=== PATIENT | female | born 1990 | race Caucasian/White ===

== ENCOUNTER 2022-08-18 07:17 | Outpatient (CLI) | payer BC, SELFPAY ==
--- NOTE | ~2022-08-18 | XR_ITS ---
EXAMINATION: XR wrist LT min 3V DATE: 08/18/2022 07:38 INDICATION: Left wrist pain TECHNIQUE: Posteroanterior, ulnar deviation, oblique, and lateral views of the left wrist were obtain ed. COMPARISON: None available FINDINGS: There is no fracture, dislocation, or subluxation. The bones, soft tissues, and joint space s are normal. IMPRESSION: 1. No acute osseous abnormality. Reviewed, dictated and finalized at location A.
== END 2022-08-18 07:18 ==
PROVIDERS: PCP Nurse Practitioner; Visit Provider Nurse Practitioner Family
DX: M25.532 Pain in left wrist (principal)
CPT/HCPCS: 73110

== ENCOUNTER 2023-04-07 11:55 | Outpatient (CLI) | payer BC, SELFPAY ==
[2023-04-07 12:50] LABS: Anion Gap 5 mmol/L (8-16); Blood Urea Nitrogen 11 mg/dL (7-17); Carbon Dioxide 30 mmol/L (22-30); Chloride 102 mmol/L (98-107); Estimated Glomerular Filt Rate > 60; Glucose 94 mg/dL (65-110); Potassium 3.5 mmol/L (3.4-5.0); Sodium 137 mmol/L (137-145)
[2023-04-12 19:20] LABS: Insulin Level Total 13.8 uIU/mL (<=19.6)
== END 2023-04-07 11:56 | disposition home or self-care (01) ==
LOC: ANHLAB 11:58
PROVIDERS: PCP Nurse Practitioner; Visit Provider Family Medicine
DX: E66.01 Morbid (severe) obesity due to excess calories (principal); I10 Essential (primary) hypertension; Z68.43 Body mass index [BMI] 50.0-59.9, adult
CPT/HCPCS: 36415; 80048; 82533; 83525

== ENCOUNTER 2023-06-17 17:02 | Inpatient (IN) | payer BC, SELFPAY ==
[2023-06-17] VITALS (69 sets, daily range): BP systolic 174–262; BP diastolic 94–152; PULSE 81–115; RESP 1–32; TEMP 36.8; O2SAT 93–100
--- NOTE | ~2023-06-17 | CT_ITS ---
EXAMINATION: CTA chest PE protocol DATE: 06/17/2023 20:20 INDICATION: HTN, CP/tightness, +dimer, elev BNP, poss PNA CXR TECHNIQUE: Computed tomography angiography (CTA) of the chest was performed with 100 mL Omnipaque-350 intravenous contrast timed to evaluate the pulmonary arteries. Coronal maximum intensity projection 3D-reconstructions were created by the technologist. The dose-length product (DLP) was 1016.35 mGy-cm . Automated exposure control and iterative reconstruction technique were employed. COMPARISON: None. FINDINGS: Lung parenchyma and airways: Subsegmental lingular opacity with volume loss. Pleura: Unremarkable. Thoracic inlet, axillae and chest wall: Unremarkable. Thoracic aorta: Normal. Mediastinum: Normal. Heart and pericardium: Mild cardiomegaly. Left ventricular wall thickening. Coronary artery calcifications: None. Upper abdomen: Diffuse fatty infiltration of the liver. Bones: No acute osseous finding. Pulmonary arteries: Study quality: Adequate. No pulmonary emboli detected. IMPRESSION: No CT evidence of acute pulmonary embolus. Subsegmental lingular opacity has the appearance of atelectasis. Cardiomegaly with left ventricular hypertrophy. Hepatic steatosis. Reviewed, dictated and finalized at location K.
--- NOTE | ~2023-06-17 | US_ITS ---
EXAMINATION: US renal BI DATE: 06/18/2023 08:59 INDICATION: Uncontrolled HTN TECHNIQUE: Multiple grayscale and Doppler ultrasound images of the kidneys were obtained. COMPARISON: CT abdomen pelvis 08/24/2015 FINDINGS: The right kidney measures 12.2 x 4.3 x 4.3 cm. The left kidney measures 11.1 x 5.2 x 5.5 cm. The kidn eys demonstrate normal parenchymal echogenicity. There is no hydronephrosis. The bladder is normal. IMPRESSION: Unremarkable renal sonogram findings. Reviewed, dictated and finalized at location K.
--- NOTE | ~2023-06-17 | XR_ITS ---
EXAMINATION: XR chest 1V portable Exam Date/Time: 06/17/2023 18:00 CDT HISTORY: chest cold, congestion, high BP Comparison: None. RESULT: Lines, tubes, and devices: None. Lungs and pleura: Segmental airspace disease in the left lower lung. Cardiomediastinal silhouette: Stable. Other: No acute osseous or upper abdominal finding. IMPRESSION: Lower lobe opacities may represent atelectasis or the consolidation of pneumonia. Reviewed, dictated and finalized at location K. IMPRESSION: Lower lobe opacities may represent atelectasis or the consolidation of pneumoni a.
--- NOTE | 2023-06-17 17:22 | ECG_ITS ---
Measurements Intervals [place] Rate: 90 P: 31 TX: 165 QRS: -7 QRSD: 95 T: 105 QT: 376 QTc: 462 Interpretive Statements SINUS RHYTHM DELAYED PRECORDIAL R/S TRANSITION LEFT VENTRICULAR HYPERTROPHY AND ST-T CHANGE BORDERLINE ECG NO PREVIOUS ECG AVAILABLE FOR COMPARISON Electronically Signed On 06-17-2023 17:38:21 CDT by Que Vang D.O.
--- NOTE | 2023-06-17 17:37 | ED.GENADULT ---
HPI - General Adult General Chief complaint: Recheck/Abnormal Lab/Rx Stated complaint: high bp Time Seen by Provider: 06/17/23 17:27 Source: patient Mode of arrival: ambulatory Limitations: no limitations History of Present Illness HPI narrative: Patient is a 32 y/o female who presents to the ED with c/o elevated BP. Patient reports she has been sick for the last 2 weeks with a cough, congestion, rhinorrhea. The cough was dry at first, but she began producing thick green drainage 2-3 days ago. 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 Last night into today, patient has had brief episodes of pain across her anterior chest. Denies any aggravating or alleviating factors to this CP. States it occurs every few minutes. Denies aggravation with exertion. Denies feeling short of breath. Patient does also report having myalgias in her upper back. Patient went to urgent care today and was referred here for further evaluation due to elevated BP. Patient does have history of HTN. She states she had previously been on spironolactone and hydrochlorothiazide. She stopped taking these a few months ago as she never followed up with her primary. She does not check her blood pressure otherwise at home. Denies recent fevers, sore throat, lower extremity swelling, abdominal pain, nausea, vomiting. Patient is a daily smoker. Related Data Allergies Allergy/AdvReac Type Severity Reaction Status Date / Time bupropion [From Wellbutrin] AdvReac Hypertensio Verified 06/17/23 17:57 n Review of Systems Review of Systems: CONSTITUTIONAL: Denies fever, chills, or sweats. ENT: See HPI. CARDIOVASCULAR: See HPI. RESPIRATORY: See HPI. GASTROINTESTINAL: Denies abdominal pain, nausea, vomiting. MUSCULOSKELETAL: See HPI. All systems reviewed & are unremarkable except as noted in HPI and below PMFSH Past Medical History Medical History (Updated 06/17/23 @ 23:29 by Kelsi Roblero PA-C) HTN (hypertension) Family History Family History (Updated 01/28/15 @ 10:28 by DOCTOR UNKNOWN) Grandparent Family history of chronic obstructive pulmonary disease Family history of malignant neoplasm of ovary Diabetes mellitus Social History Social History Smoking status: Current every day smoker Alcohol intake: current Exam Narrative: GENERAL: Well appearing, morbidly obese with BMI of 55.0, non-toxic, in no acute distress. HEAD: Normocephalic, atraumatic. NECK: Supple. No adenopathy, no masses. RESPIRATORY: Airway patent, respirations nonlabored. Scattered expiratory wheezing bilaterally. No significant rhonchi. Frequent coughing on exam. CARDIOVASCULAR: Regular rate and rhythm without murmurs, rubs, or gallops. Radial pulses 2+ and equal bilaterally. ABDOMINAL: Soft, nontender, nondistended, no hepatosplenomegaly. Normoactive BS. MUSCULOSKELETAL: Moves all extremities. Strength/ROM intact without gross deformities. No edema. SKIN: Warm, dry, normal color. No rashes. NEURO: A&O X3. Speech clear. Cranial nerves II-XII grossly intact. Steady gait. No ataxic movements. PSYCHIATRIC: Anxious, tearful. Normal interaction. Course Vital Signs Vital signs: Vital Signs Temperature 98.3 F 06/17/23 17:11 Pulse Rate 100 06/17/23 17:11 Respiratory Rate 16 06/17/23 17:11 Blood Pressure 221/136 H 06/17/23 17:11 Pulse Oximetry 100 06/17/23 17:11 Oxygen Delivery Room Air 06/17/23 17:11 Temperature 98.3 F 06/17/23 17:11 Pulse Rate 104 H 06/17/23 21:00 Respiratory Rate 17 06/17/23 21:00 Blood Pressure 219/115 H 06/17/23 21:14 Pulse Oximetry 99 06/17/23 20:45 Oxygen Delivery Room Air 06/17/23 17:11 Medical Decision Making MDM Narrative Medical decision making narrative: BP upon arrival 221/136. Patient anxious. Stopped taking her meds a few months ago. Per med rec, a 30day supply of hydrochlorothiazide 25mg was filled on 03/31. Will attempt hydralazine for BP contro
[2023-06-17 17:58] LABS: Basophils Absolute Auto 0.1 K/mm3 (0.0-0.1); Basophils Percent Auto 0.9 % (0.2-1.2); Eosinophils Absolute Auto 0.3 K/mm3 (0-0.3); Eosinophils Percent Auto 2.4 % (0-4.4); Hematocrit 38.6 % (37.0-47.0); Hemoglobin 12.5 g/dL (12.0-15.0); Immature Granulocyte Absolute 0.05 K/mm3 (0.00-0.031); Immature Granulocyte Percent A 0.5 % (0-0.5); Lymphocytes Absolute Auto 1.63 K/mm3 (0.9-3.2); Lymphocytes Percent Auto 15.7 % (18.3-44.2); Mean Corpuscular HGB Conc 32.4 g/dl (32-36); Mean Corpuscular Hemoglobin 27.2 pg (26-34); Mean Corpuscular Volume 83.9 fl (80-100); Mean Platelet Volume 9.9 fl (7.4-10.4); Monocytes Absolute Auto 0.6 K/mm3 (0.1-0.6); Neutrophils Absolute Auto 7.8 K/mm3 (1.3-6.7); Neutrophils Percent Auto 74.5 % (45.5-73.1); Platelet Count Result 339 k/mm3 (150-375); Red Cell Distribution Width 15.1 % (11.5-14.5); White Blood Count 10.4 K/mm3 (4.5-10.0)
[2023-06-17] MEDS: LEVALBUTEROL NEB 1.25 MG/3 ML INHALATION (18:01)
[2023-06-17] MEDS: IPRATROPIUM BR 0.02% INH SOLN 0.5 MG/2.5 ML VIAL INHALATION (18:02)
[2023-06-17 18:07] LABS: Prothrombin Time 13.5 Seconds (11.1-14.7)
[2023-06-17 18:08] LABS: Partial Thromboplastin Time 23.7 SECONDS (22.3-36.8)
[2023-06-17 18:15] LABS: Alanine Aminotransferase 52 U/L (6-35); Albumin Level 4.1 g/dL (3.5-5.1); Alkaline Phosphatase 89 U/L (38-126); Anion Gap 7 mmol/L (8-16); Aspartate Amino Transferase 51 U/L (14-36); Bilirubin,Total 0.7 mg/dL (0.2-1.3); Blood Urea Nitrogen 11 mg/dL (7-17); Calcium 9.1 mg/dL (8.4-10.2); Carbon Dioxide 23 mmol/L (22-30); Chloride 102 mmol/L (98-107); Estimated CRCL calculation 151 ml/min; Estimated Glomerular Filt Rate > 60; Glucose 99 mg/dL (65-110); Lipase 95 U/L (23-300); Potassium 4.1 mmol/L (3.4-5.0); Sodium 132 mmol/L (137-145)
[2023-06-17 18:20] LABS: NT Pro B Type Natriuretic Pept 896 pg/mL (19.9-100); Troponin I 0.016 ng/mL (0.000-0.034)
[2023-06-17 18:22] LABS: Hemoglobin A1C 5.5 % (<5.7)
[2023-06-17] MEDS: hydrALAZINE HCL 20 MG/ML VIAL 10 MG IV PUSH ×2 (18:29→19:16)
[2023-06-17] MEDS: ASPIRIN 81 MG CHEWABLE TABLET 324 MG PO (18:29)
--- NOTE | 2023-06-17 19:39 | PC.NURSE ---
Report received from KYLIE Quintana. Assumed care of patient at this time.
[2023-06-17 19:40] LABS: D Dimer 3.19 ug/mL (<0.48)
[2023-06-17 19:47] LABS: Influenza A QL RT-PCR Negative (Negative); Influenza B QL RT-PCR Negative (Negative); SARS-CoV-2 RNA PCR Negative (Negative)
[2023-06-17 19:47] LABS: Appearance Urine Clear (Clear); Bacteria Urine None Seen /hpf; Bilirubin Urine Negative (Negative); Blood Urine Negative (Negative); Calcium Oxalate Crystals Urine Present /hpf; Color Urine Yellow (Yellow); Glucose Urine UA Negative (Negative); Ketones Urine Negative (Negative); Leukocyte Esterase Ur Negative LEU/UL (Negative); Need Manual Microscopic Reviewed; Nitrate Urine Negative (Negative); Non Pathogenic Casts 0-2; Protein Urine Trace mg/dL (Negative); Specific Grav Ur 1.018 (1.001-1.035); Squamous Epithelial Cell Urine None seen /hpf (Few); Urobilinogen Urine 0.2 mg/dL (<2.0); WBC Urine 0-5 /hpf; pH Urine 6.5 (5.0-9.0)
[2023-06-17 19:48] LABS: Add Urine Microscopic? YES
[2023-06-17 21:01] LABS: Troponin I 0.018 ng/mL (0.000-0.034)
[2023-06-17] MEDS: LABETALOL HCL INJ 100 MG/20 ML VIAL 20 MG IV PUSH (21:13)
--- NOTE | 2023-06-17 23:37 | PM.IMHP ---
H&P: HPI History of Present Illness Date/Time: 06/17/23 23:37 Chief Complaint: chest pain Narrative: This is a 32-year-old female with past medical history significant for tobacco dependence, alcohol dependence, uncontrolled hypertension, morbid obesity. Patient presents to the emergency room due to chest pain, has had a upper respiratory infection for the last 2 weeks with runny nose cough has been on amoxicillin. Patient also with uncontrolled hypertension systolic in the 200s has been prescribed antihypertensives but patient does not take them. In emergency room found to have a systolic blood pressure of 214/112, patient denies any leg pain, leg swelling or ankle swelling or pedal swelling, no nausea, no vomiting, no abdominal pain, has felt the dizzy. EXAMINATION:? XR chest 1V portable Exam Date/Time:? 06/17/2023 18:00 CDT HISTORY: chest cold, congestion, high BP ? Comparison:? None. RESULT: Lines, tubes, and devices:? None. Lungs and pleura:? Segmental airspace disease in the left lower lung. Cardiomediastinal silhouette:? Stable. Other:? No acute osseous or upper abdominal finding. ? IMPRESSION: Lower lobe opacities may represent atelectasis or the consolidation of pneumonia. EXAMINATION: CTA chest PE protocol DATE: 06/17/2023 20:20 INDICATION: HTN, CP/tightness, +dimer, elev BNP, poss PNA CXR TECHNIQUE: Computed tomography angiography (CTA) of the chest was performed with 100 mL Omnipaque-350 intravenous contrast timed to evaluate the pulmonary arteries. Coronal maximum intensity projection 3D-reconstructions were created by the technologist. The dose-length product (DLP) was 1016.35 mGy-cm. Automated exposure control and iterative reconstruction technique were employed. COMPARISON: None. ? FINDINGS:? Lung parenchyma and airways: Subsegmental lingular opacity with volume loss. Pleura: Unremarkable. Thoracic inlet, axillae and chest wall: Unremarkable. Thoracic aorta: Normal. Mediastinum: Normal. Heart and pericardium: Mild cardiomegaly. Left ventricular wall thickening. Coronary artery calcifications: None. Upper abdomen: Diffuse fatty infiltration of the liver. Bones: No acute osseous finding. Pulmonary arteries: Study quality: Adequate. No pulmonary emboli detected. IMPRESSION: No CT evidence of acute pulmonary embolus. Subsegmental lingular opacity has the appearance of atelectasis. Cardiomegaly with left ventricular hypertrophy. Hepatic steatosis. Review of Systems Review of Systems: chest discomfort, runny nose, cough, dizziness, uncontrolled hypertension. Constitutional: Constitutional: Reports chills, Reports fatigue, Reports malaise and Denies night sweats Eyes: Eyes: Denies change in vision ENT: Denies dysphagia, Reports dizziness and Denies odynophagia Cardiovascular: Cardiovascular: Reports chest pain, Denies pedal edema, Denies irregular heart rhythm, Denies leg edema, Reports lightheadedness and Denies palpitations Respiratory: Respiratory: Denies chest congestion and Reports cough Gastrointestinal: Gastrointestinal: Denies abdominal pain, Denies dyspepsia, Denies heartburn, Denies diarrhea, Denies nausea and Denies vomiting Genitourinary: Genitourinary: Denies dysuria Musculoskeletal: Musculoskeletal: Denies back pain, Denies myalgias, Denies arthralgias and Denies joint swelling Integumentary/Breasts: Skin/Breast: Denies rash Neurologic: Denies focal weakness and Denies Sensory deficit (Neuro) Psychiatric: Psychiatric: Reports no additional psychiatric complaints and Reports as per HPI Endocrine: Endocrine: Denies cold intolerance, Denies fatigue, Denies flushing, Denies heat intolerance, Denies polyphagia and Denies palpitations Hematologic/Lymphatic: Hematologic/Lymphatic: Reports no additional hematologic/lymphatic complaints and Reports as per HPI Allergic/Immunologic: Allergic/Immunologic: Reports no additional allergic/imm
[2023-06-18] VITALS (11 sets, daily range): BP systolic 171–187; BP diastolic 88–125; PULSE 75–88; RESP 19–20; TEMP 36.3–36.9; O2SAT 97–99; BMI 55.4
--- NOTE | 2023-06-18 00:49 | ADMGEN ---
This patient, Soraya Cardona, was admitted to IMU Room 202-01 on 06/18/23 at 0046. Patient/family oriented to hospital policies and general routines including ID bracelet, bed and alarms, visiting hours, pain management, procedures, bathroom and other care routines, personal items, smoking policy, room service/diet, and visiting hours. Information on how to activate the Rapid Response Team has been discussed. Patient/Family are encouraged to report perceived risks to care and to ask questions if they do not understand what they are told or what they should do.
[2023-06-18 05:50] LABS: Glucose Point of Care 121 mg/dl (65-105)
[2023-06-18] MEDS: chlordiazePOXIDE (*CRX) 25 MG CAPSULE 50 MG PO (05:52)
[2023-06-18] MEDS: cefTRIAXone 2 GM/NS 100 ML 2 GM/100 ML BAG IVPB (06:10)
[2023-06-18] MEDS: AZITHROMYCIN 500 MG/NS 250 ML 500 MG/250 ML BAG 250 MG IVPB (06:45)
[2023-06-18] MEDS: ONDANSETRON INJ 4 MG/2 ML VIAL IV PUSH (06:57)
[2023-06-18] MEDS: lisinopriL 5 MG TABLET PO (11:01)
--- NOTE | 2023-06-18 11:54 | PM.DS ---
DS: Admitting Diagnosis Discharge Date June 18, 2020 Admitting Diagnosis Hypertensive urgency, chest pain. DS: Discharge Diagnosis Discharge Diagnosis (1) Hypertensive urgency: Code(s): I16.0 - Hypertensive urgency Status: Acute Assessment and Plan: Admit to IMU noncompliance with medications permissive hypertensive cautious normalization of blood pressure hydralazine p.r.n. echocardiogram in a.m. renal ultrasound in a.m. (2) Atypical chest pain: Code(s): R07.89 - Other chest pain Status: Acute Assessment and Plan: likely secondary to uncontrolled hypertension chest pain-free at this time (3) Elevated brain natriuretic peptide (BNP) level: Code(s): R79.89 - Other specified abnormal findings of blood chemistry Status: Acute Assessment and Plan: slight elevation of BNP (4) Upper respiratory infection: Qualifiers: URI type: unspecified URI Qualified Code(s): J06.9 - Acute upper respiratory infection, unspecified Code(s): J06.9 - Acute upper respiratory infection, unspecified Status: Acute Assessment and Plan: discontinue amoxicillin started on Rocephin and Zithromax chest x-ray with probable infiltrates (5) Cardiomegaly: Code(s): I51.7 - Cardiomegaly Status: Acute Assessment and Plan: likely secondary to uncontrolled hypertension (6) HTN (hypertension): Code(s): I10 - Essential (primary) hypertension Status: Acute Assessment and Plan: noncompliance with medications patient needs to be started on antihypertensives (7) Morbid obesity with BMI of 50.0-59.9, adult: Code(s): E66.01 - Morbid (severe) obesity due to excess calories; Z68.43 - Body mass index [BMI] 50.0-59.9, adult Status: Acute Assessment and Plan: lifestyle and diet modifications (8) EtOH dependence: Code(s): F10.20 - Alcohol dependence, uncomplicated Status: Acute Assessment and Plan: CIWA protocol as needed (9) Tobacco dependence: Code(s): F17.200 - Nicotine dependence, unspecified, uncomplicated Status: Acute Assessment and Plan: nicotine patch as needed DS: Summary Hospital Course Hospital Course: Admitted for hypertensive urgency. Patient also has history of noncompliance to blood pressure medications. Troponin negative. He she was also having chest pain which is now resolved. She is feeling fine wants to go home. I will resume lisinopril and hydrochlorothiazide on discharge. Patient reports she does not know what medicine she was supposed to be on but she thinks her 2 different blood pressure medications. She did not take these for whatever reason. She needs to follow-up with her primary care physician Time Spent with Patient Time attestation: Total time spent providing and/or coordinating discharge services: Exam Narrative: Patient is sitting in a stretcher Const: General: comfortable, no acute distress, well developed, alert, awake, average body habitus and obese Nutritional Appearance: average body habitus and obese morbidly obese Orientation/consciousness: patient oriented x3 HENMT: Head: normal to inspection, normocephalic and atraumatic Ears: hearing grossly normal bilaterally Face/Nose/Sinus: normal facial exam Face and sinus: normal facial exam Eyes: General: appearance normal, both eyes and all related structures Pupils: Equal, round and reactive pupils present EOM: EOMs intact bilaterally Neck: Neck: full ROM, no lymphadenopathy and no JVD Thyroid: thyroid normal Lymphatic: no lymphadenopathy noted Resp: Effort & Inspection: normal respiratory effort and able to speak in complete sentences Auscultation: clear to auscultation bilaterally Cardio: Jugular venous distension: no JVD Rate: regular rate Rhythm: regular rhythm Heart sounds: S1 normal heart sound present and S2 normal heart sound present : G
== END 2023-06-18 13:00 | disposition home or self-care (01) | DRG 305 ==
LOC: ANHED 17:40 → ANHIMU 22:22
PROVIDERS: Emergency Medicine; Admitting Provider Internal Medicine; Emergency Provider Physician Assistant; PCP Nurse Practitioner; Visit Provider Chiropractor
DX: I16.0 Hypertensive urgency (principal); Z68.43 Body mass index [BMI] 50.0-59.9, adult; Z20.822 Contact with and (suspected) exposure to COVID-19; J06.9 Acute upper respiratory infection, unspecified; F17.210 Nicotine dependence, cigarettes, uncomplicated; I51.7 Cardiomegaly; F10.20 Alcohol dependence, uncomplicated; E66.01 Morbid (severe) obesity due to excess calories; R07.89 Other chest pain; Z91.199 Patient's noncompliance with other medical treatment and regimen due to unspecified reason
CPT/HCPCS: 36415; 71045; 71275; 76775; 80053; 81001; 81025; 82948; 83036; 83690; 83880; 84484; 85025; 85380; 85610; 85730; 87636; 93005; 94640; 96365; 96374; 96375; 96376; 99285; A9270; G0378; J0360; J0456; J0696; J2405; Q9967

== ENCOUNTER 2023-07-07 10:35 | Outpatient (CLI) | payer BC, SELFPAY ==
[2023-07-07 12:43] LABS: Alanine Aminotransferase 42 U/L (6-35); Albumin Level 4.4 g/dL (3.5-5.1); Alkaline Phosphatase 84 U/L (38-126); Anion Gap 9 mmol/L (8-16); Aspartate Amino Transferase 30 U/L (14-36); Bilirubin,Total 0.4 mg/dL (0.2-1.3); Blood Urea Nitrogen 12 mg/dL (7-17); Calcium 9.4 mg/dL (8.4-10.2); Carbon Dioxide 27 mmol/L (22-30); Chloride 100 mmol/L (98-107); Estimated Glomerular Filt Rate > 60; Glucose 94 mg/dL (65-110); Potassium 3.8 mmol/L (3.4-5.0); Sodium 136 mmol/L (137-145)
[2023-07-12 14:35] LABS: PRA 27.09 ng/mL/h (0.25-5.82)
== END 2023-07-07 10:36 | disposition home or self-care (01) ==
LOC: ANHLAB 10:38
PROVIDERS: PCP Nurse Practitioner; Visit Provider Nurse Practitioner
DX: I10 Essential (primary) hypertension (principal)
CPT/HCPCS: 36415; 80053; 82088; 84244; 84443

== ENCOUNTER 2025-03-12 16:04 | Outpatient (CLI) | payer BC, SELFPAY ==
--- NOTE | ~2025-03-12 | XR_ITS ---
XR ankle LT min 3V Ordering provider: Daphne Ott, PHOTOGRAMMETRIC TECH-C History: . Pain in left ankle and joints of left foot . Comparison: None. FINDINGS: BONES: No acute fracture or dislocation. JOINT SPACES: The ankle mortise is normal. SOFT TISSUES: Soft tissue swelling over the medial and lateral Nicole. IMPRESSION: No acute osseous abnormality left ankle. Reviewed, dictated and finalized at location A.
--- NOTE | ~2025-03-12 | XR_ITS ---
HISTORY: Pain in left foot COMPARISON: None TECHNIQUE: 3 views of the left foot were performed FINDINGS: No acute fracture or dislocation is appreciated. Peripheral degenerative disease is noted. The base of the fifth metatarsal is intact. No calcaneal spur is noted. No significant soft tissue swelling is present. IMPRESSION: No acute fracture or dislocation, as detailed above. Reviewed, dictated and finalized at location A.
== END 2025-03-12 16:05 | disposition home or self-care (01) ==
PROVIDERS: PCP Nurse Practitioner; Visit Provider Nurse Practitioner Family
DX: M79.672 Pain in left foot (principal); M25.572 Pain in left ankle and joints of left foot
CPT/HCPCS: 73610; 73630